=== PATIENT | female | born 1980 | race Hispanic/Latino ===

== ENCOUNTER 2020-06-28 14:43 | Emergency (ER) | payer SELFPAY ==
[2020-06-28] MEDS ORDERED: Naproxen 500 MG TAB ONE (15:42)
--- NOTE | 2020-06-28 16:08 | RAD ---
Exam: XR Ankle Lt 3 View STANDARD HISTORY: Left ankle pain after a fall one week ago. COMPARISON: None FINDINGS: No acute fracture, dislocation, or other acute osseous abnormality is identified. Subcutaneous soft tissue swelling is seen at the lateral aspect of the ankle. IMPRESSION: Subcutaneous soft tissue swelling without evidence of an acute fracture.
--- NOTE | 2020-06-28 16:09 | RAD ---
Exam: XR Foot Lt 3 View STANDARD HISTORY: Left ankle pain after fall one week ago. COMPARISON: None FINDINGS: No acute fracture, dislocation, or other acute osseous abnormality is identified. Subcutaneous soft tissue swelling is seen at the anterior aspect left ankle. IMPRESSION: 1. No acute osseous abnormality. 2. Subcutaneous soft tissue swelling at the level of the ankle.
--- NOTE | 2020-06-28 16:11 | RAD ---
EXAM: XR Ribs Rt>= 2 View W/PA CXR PROVIDED CLINICAL HISTORY: Injury after falling and snow one week ago. Patient reports right flank pain which takes her breath a way. COMPARISON: None FINDINGS: Cardiac silhouette and pulmonary vasculature are within normal limits. The lungs are clear. No pleura l effusion or pneumothorax is visualized. No right-sided rib fracture is visualized. Mild degenerative changes in spine with right convex curvature of thoracolumbar spine. IMPRESSION: 1. No acute cardiopulmonary process. 2. No right-sided rib fractures seen.
[2020-06-28 16:32] LABS: Bacteria/HPF None Seen HPF (None Seen); Bilirubin Negative (Negative); Blood, Urine Negative (Negative); Clarity Clear (Clear); Glucose, Urine (Dipstick) Normal (Negative); Ketone, Urine Negative (Negative); Leukocyte 25 Leu/uL (Negative); Nitrite Negative (Negative); Protein, Urine (Dipstick) Negative (Neg-Trace); RBC/HPF 0-3 HPF (0-3); Specific Gravity, Urine 1.009 (1.002-1.036); Squamous Epithelial 0-3 HPF (0-3); Urobilinogen Normal mg/dL (Less than 2); pH, Urine 5.5 (5.0-9.0)
[2020-06-28 16:37] LABS: Pregnancy Test - Urine (BHCG) Negative (Negative); Pregu Control Background? CLEAR/WHITE (CLR/WHITE); Pregu Control Bar Appear? YES (CONTROL BAR); Specific Gravity 1.009 (1.002-1.036)
[2020-06-29 12:59] LABS: SARS-CoV-2 PCR by NAA DETECTED (NotDetected)
== END 2020-06-28 17:17 | disposition home or self-care (01) ==
LOC: ERS 14:43
DX: U07.1 COVID-19 (principal); M25.572 Pain in left ankle and joints of left foot; R07.81 Pleurodynia; J45.909 Unspecified asthma, uncomplicated; F17.290 Nicotine dependence, other tobacco product, uncomplicated; Z79.899 Other long term (current) drug therapy
CPT/HCPCS: 81003; 81015; 81025; 87635; U0003; U0005